=== PATIENT | female | born 1950 | race African-American/Black ===

== ENCOUNTER 2017-04-18 10:56 | Day surgery (SDC) | payer MEDICARE, OTHER ==
[2017-04-18] VITALS (12 sets, daily range): BP systolic 123–145; BP diastolic 62–83; PULSE 67–82; TEMP 97.9
[~2017-04-18] VITALS: Ht 162.6 cm; Wt 78.4 kg
[2017-04-18 11:24] LABS: HEMOGLOBIN 12.8 g/dl (12.5-16.0); MEAN CELL VOLUME 85 fl (80.0-100.0); MEAN CORPUSCULAR HEMOGLOBIN 28 pg (27.0-31.0); MEAN CORPUSCULAR HGB CONC 33 g/dl (33.0-37.0); MEAN PLATELET VOLUME 11.4 fl (7.4-10.4); PLATELET COUNT 231 K/mm3 (130-400); RED BLOOD COUNT 4.58 M/mm3 (4.10-5.30)
[2017-04-18] MEDS ORDERED: TOPROL XL100 MG PO (11:24)
[2017-04-18] MEDS ORDERED: COZAAR 50MG50 MG/TAB PO (11:24)
[2017-04-18] MEDS ORDERED: HCTZ 25MG TAB25 MG PO (11:25)
[2017-04-18] MEDS ORDERED: LIPITOR20 MG PO (11:25)
[2017-04-18 11:26] LABS: INR 1.2 (0.8-3.0)
[2017-04-18] MEDS ORDERED: ASPIRIN E.C. 8181 MG PO (11:26)
[2017-04-18] MEDS ORDERED: JANUVIA50 MG PO (11:26)
[2017-04-18] MEDS ORDERED: LANTUS100 U/ML SQ (11:27)
[2017-04-18] MEDS ORDERED: ZYRTEC 10MG10 MG PO (11:27)
[2017-04-18] MEDS ORDERED: MASON NATURAL2000 IU PO (11:28)
[2017-04-18 11:30] LABS: CALCIUM 9.5 mg/dL (8.4-10.2); CREATININE, serum 0.8 mg/dL (0.52-1.25); POTASSIUM 3.9 mmol/L (3.4-5.0)
== END 2017-04-18 18:40 | disposition home or self-care (01) ==
LOC: COL.CAR 10:56
PROVIDERS: Internal Medicine Interventional Cardiology
DX: R07.89 Other chest pain (principal); I25.10 Atherosclerotic heart disease of native coronary artery without angina pectoris; I10 Essential (primary) hypertension; E11.9 Type 2 diabetes mellitus without complications; Z79.4 Long term (current) use of insulin; Z79.82 Long term (current) use of aspirin; I73.9 Peripheral vascular disease, unspecified; M79.604 Pain in right leg; M79.605 Pain in left leg; Z95.828 Presence of other vascular implants and grafts; Z80.9 Family history of malignant neoplasm, unspecified
CPT/HCPCS: J2250; J2405; J3010; Q9967